=== PATIENT | male | born 1960 | race Caucasian/White ===

== ENCOUNTER 2016-09-15 05:41 | Day surgery (SDC) | payer OTHER ==
--- NOTE | 2016-09-12 13:25 | GHP ---
[f rep st] PREOP HISTORY AND PHYSICAL DATE OF ADMISSION: 09/15/2016 CHIEF COMPLAINT: New diagnosis of cancer. HISTORY OF PRESENT ILLNESS: This is an otherwise very healthy 55-year-old male referred to my office by his oncologist, Dr. Lerner. The patient was recently diagnosed in May of this year with chronic lymphocytic leukemia. He was subsequently referred over here for counseling and consultation for chemotherapy Bclbaj-H-Jqga placement. The patient states that he otherwise feels well. His energy level is somewhat low, and he is anxious to begin treatment; however, he otherwise feels well. Denies having any recent fevers and/or chills. Continues to do P90X on a regular basis and has no complaints. He has never had any long dwelling IV access including Vxpgml-A-Gepi and/or PIC placement in either the neck or the upper extremity. PAST MEDICAL HISTORY: Chronic lymphocytic leukemia. PAST SURGICAL HISTORY: None. CURRENT MEDICATIONS: None. ALLERGIES: None. REVIEW OF SYSTEMS: A full 10-point review was performed and unless explicitly stated above is otherwise negative. PHYSICAL EXAM: VITAL SIGNS: Reviewed and are normal. GENERAL: He is alert and oriented, in no acute distress. CV: He has a regular rate and rhythm. LUNGS: Clear. ABDOMEN: Soft, nondistended, nontender. He has no palpable lymphadenopathy. NECK: His neck exam shows no palpable lymphadenopathy. No aberrant anatomy present on ostensible physical exam. ASSESSMENT AND PLAN: A 55-year-old male with recent diagnosis of chronic lymphocytic leukemia here for discussion of Wewpza-Q-Jtug placement. I had a long discussion today with the patient regarding the risks, benefits, and alternatives to Xefutj-M-Qngs placement. He wishes to proceed. I have tentatively scheduled him for placement on the morning of the . /[id number]/MODL MTDD
[2016-09-15] MEDS ORDERED: LIDOCAINE 1% 5 ML SDV ONE (05:55)
[2016-09-15] MEDS ORDERED: ceFAZolin 2 GM/DEXTROSE 100 ML IV ONE (06:00)
[2016-09-15] MEDS ORDERED: LIDOCAINE 1% 5 ML SDV ID PRN (06:16)
[2016-09-15] MEDS ORDERED: LR 1,000 ML IV ONE (06:16)
[2016-09-15] MEDS ORDERED: fentaNYL 100 MCG/2 ML INJ ONE (06:45)
[2016-09-15] MEDS ORDERED: PROPOFOL 200 MG/20 ML VIAL ONE ×2 (06:45→07:42)
[2016-09-15] MEDS ORDERED: BUPIVACAINE/EPI 0.25% 30 ML SDV ONE (07:02)
[2016-09-15] MEDS ORDERED: MIDAZOLAM 2 MG/2 ML VIAL ONE (07:11)
[2016-09-15] MEDS ORDERED: LIDOCAINE 2% 5 ML SDV ONE (07:48)
[2016-09-15] MEDS ORDERED: DEXAMETHASONE 4 MG/ML VIAL ONE ×2 (07:56)
[2016-09-15] MEDS ORDERED: ONDANSETRON 4 MG/2 ML VIAL ONE (07:57)
[2016-09-15] MEDS ORDERED: SKIN ADHESIVE (DERMABOND) 1 EACH TP ONE (08:00)
--- NOTE | 2016-09-15 09:17 | DX ---
Portable Chest at 827 hours History: Post port placement. Comparison: None available. Findings: Right internal jugular chest port tip is in the lower SVC, in good position, with no visibl e pneumothorax. The lungs are clear. Heart size is normal. The bones are normal. Impression: Right internal jugular chest port tip in the lower SVC with no visible complication. Findings discussed with Mayi, the patient's nurse in PACU, today at 0914 hours.
--- NOTE | 2016-09-15 09:32 | DX ---
Fluoroscopy for Port Placement 0747hours Indication: Vascular port access. Fluoroscopy time: 26.8 seconds. Dose: 4.79 mGy. Technique: Two intraoperative spot films. Findings: A right anterior chest wall port has been placed. The tip overlies the high right atrium. Impression: Fluoroscopy provided for port placement.
--- NOTE | 2016-09-15 11:20 | GOP ---
[f rep st] OPERATIVE REPORT DATE OF OPERATION: 09/15/2016 SURGEON: Moise Peck MD FRY COOK: None. ANESTHESIA: General endotracheal. ANESTHESIOLOGIST: Dr. Chapman. PREOPERATIVE DIAGNOSIS: New diagnosis of chronic lymphocytic leukemia, need for chemotherapy access. POSTOPERATIVE DIAGNOSIS: New diagnosis of chronic lymphocytic leukemia, need for chemotherapy access . PROCEDURE PERFORMED: Ultrasound-guided placement via right internal jugular PowerPort with intraoper ative fluoroscopy. FINDINGS: Slim power port successfully placed into the right internal jugular vein. SPECIMENS: None. ESTIMATED BLOOD LOSS: 5 cc. DESCRIPTION OF PROCEDURE: The patient was greeted in the preoperative suite. Once again, risks, reilly efits, and alternatives were discussed at length, at which point in time the consent was signed. He was then brought back to the operative suite, placed on the OR table in a supine position. After all anesthesia machines, including SCDs were on and functioning, a [employer] time-out wa s performed. General endotracheal anesthesia was then induced without incident. Antibiotics were gi temo on-call to the operating room. The patient's right neck was then prepped and draped in typical s terile fashion. Using ultrasound guidance, I successfully accessed the right internal jugular vein a nd threaded a guidewire. After threading this, I selected a site on the anterior chest wall from my port approximately 2 fingerbreadths below the clavicle in the midclavicular line. I made an incision , deepened it through the subcutaneous tissue. I made a pocket for my port. I then tracked the port toward my internal jugular site after anesthetizing it with lidocaine. I then successfully threaded the tubing from the port site up to the stick site. I placed the peel-away introducer into the inte rnal jugular vein. I then threaded the port tubing into it under fluoroscopic guidance, ensuring I w as in the proper location. Once this was done, I connected the tubing to the port itself. It both f lushed and allison appropriately. I attached it to the underlying fascia with an interrupted Prolene medina ture. I closed the overlying skin in layers. The subcutaneous layer was reapproximated with interru pted Vicryl, and the skin was closed with a running 4-0 Monocryl. Dermabond was placed over the inci bennie and Steri-Strips were placed over my internal jugular stick site. The patient tolerated the pro cedure well, was then taken to the PACU in satisfactory condition. DRAINS: None. COUNTS: All counts were reported as correct x2. /[id number]/MODL
== END 2016-09-15 09:50 | disposition home or self-care (01) ==
LOC: MERGE 05:41 → FSGY 05:41 → UNMERGE 05:41 → FSGY 09:50
PROVIDERS: ATTEND Surgery
PROC: 02HV33Z Insertion of Infusion Device into Superior Vena Cava, Percutaneous Approach (ICD-10-PCS; principal; 2016-09-15 07:15)
PROC: 0JH60XZ Insertion of Tunneled Vascular Access Device into Chest Subcutaneous Tissue and Fascia, Open Approach (ICD-10-PCS; principal; 2016-09-15 07:15)
DX: C91.10 Chronic lymphocytic leukemia of B-cell type not having achieved remission (principal)
CPT/HCPCS: C1788; J0690; J1100; J2250; J2405; J2704; J3010